=== PATIENT | male | born 1960 | race Caucasian/White ===

== ENCOUNTER 2017-04-25 22:37 | Emergency (ER) | payer OTHER ==
[~2017-04-25 22:37] MED LIST: ATIVAN1 M2 PO; CLARITIN10 MG/TAB PO; KEFLEX PO; NO HOME MEDS
[2017-04-25] MEDS ORDERED: VITAMINS (23:15)
[2017-04-25] MEDS ORDERED: OMEGA 3 1,0001 EAC1 PO (23:16)
[2017-04-25] MEDS ORDERED: VITAMIN B COMP1 EAC1 PO (23:16)
[2017-04-25] MEDS ORDERED: MEN 50 PLUS MU1 EACH PO (23:16)
[2017-04-25] MEDS ORDERED: VITAMIN C500 M3 PO (23:16)
[2017-04-25] MEDS ORDERED: VITAMIN D31000 UNI3 PO (23:17)
[2017-04-25] MEDS ORDERED: FIBER500 M1 PO (23:17)
== END 2017-04-26 00:52 ==
LOC: EDMED 22:37
DX: R03.0 Elevated blood-pressure reading, without diagnosis of hypertension (principal)